=== PATIENT | female | born 2000 | race Caucasian/White ===

== ENCOUNTER 2022-11-30 09:16 | Emergency (ER) | payer OTHER, SELFPAY ==
[2022-11-30 09:18] VITALS: BP 111/81; PULSE 93; RESP 18; TEMP 36.5; O2SAT 98
--- NOTE | 2022-11-30 09:46 | ED.DENTAL ---
HPI - Dental/Oral General Chief complaint: Dental/Oral Stated complaint: swollen lip, mouth pain Time Seen by Provider: 11/30/22 09:25 Source: patient Mode of arrival: ambulatory Limitations: no limitations History of Present Illness HPI Narrative: Patient is a 22 y/o female who presents to the ED with c/o mouth pain and upper lip swelling. Patient reports she developed pain along her upper teeth/gums, teeth numbers 7 and 8 yesterday. She then woke up this morning with mild swelling of her upper lip, which prompted her presentation. She denies any difficulty breathing or swallowing, rash, allergen exposure, swelling of throat or tongue, sore throat, injury, fevers, nausea, vomiting. Denies feeling any bump or abscessed region. Denies any drainage. Has not tried anything for her symptoms. Related Data Allergies Allergy/AdvReac Type Severity Reaction Status Date / Time No Known Allergies Allergy Unverified 10/22/18 10:30 Review of Systems Review of Systems: CONSTITUTIONAL: Denies fever, chills, or sweats. ENT: See HPI. CARDIOVASCULAR: Denies chest pain. RESPIRATORY: Denies cough or dyspnea. GASTROINTESTINAL: Denies nausea, vomiting. All systems reviewed & are unremarkable except as noted in HPI and below PMFSH Past Medical History Medical History Anxiety Depression Surgical History Surgical History No pertinent past surgical history Social History Social History Smoking status: Never smoker Exam Narrative: GENERAL: Well appearing, thin, non-toxic, in no acute distress. HEAD: Normocephalic, atraumatic. ENT: Scattered dental caries. Plaque buildup along several teeth. No significant dental decay. Focal tenderness along upper gumline, above teeth numbers 7 and 8, no palpable abscess or fluctuance. No ulcers. Very mild swelling of upper right lip. No swelling of tongue or throat. Airway patent. No stridor. No hypertrophy or exudate. Uvula midline. Patient tolerating secretions. NECK: Supple. No adenopathy, no masses. RESPIRATORY: Airway patent, respirations nonlabored. Clear to auscultation bilaterally, no rales, rhonchi, wheezing. CARDIOVASCULAR: Regular rate and rhythm without murmurs, rubs, or gallops. Radial pulses 2+ and equal bilaterally. MUSCULOSKELETAL: Moves all extremities. Strength/ROM intact without gross deformities. SKIN: Warm, dry, normal color. No rashes. No urticaria. NEURO: A&O X3. Speech clear. Cranial nerves II-XII grossly intact. Steady gait. No ataxic movements. PSYCHIATRIC: Appropriate mood and affect. Normal interaction. HENMT: Teeth image: 1. tenderness along gumline Course Vital Signs Vital signs: Vital Signs Temperature 97.7 F 11/30/22 09:18 Pulse Rate 93 11/30/22 09:18 Respiratory Rate 18 11/30/22 09:18 Blood Pressure 111/81 11/30/22 09:18 Pulse Oximetry 98 11/30/22 09:18 Oxygen Delivery Room Air 11/30/22 09:18 Temperature 97.7 F 11/30/22 09:18 Pulse Rate 93 11/30/22 09:18 Respiratory Rate 18 11/30/22 09:18 Blood Pressure 111/81 11/30/22 09:18 Pulse Oximetry 98 11/30/22 09:18 Oxygen Delivery Room Air 11/30/22 09:18 MDM - Dental/Oral MDM Narrative Medical decision making narrative: Patient's pain is consistent with gingivitis, dental infection. Focal tenderness along upper gumline. There are no focal signs of space-occupying abscess. No palpable fluctuance or abscesses. Low suspicion for allergic reaction/anaphylaxis/angioedema. Swelling mild and in the same location as the tenderness along gumline underneath. No known allergen exposure. No other signs of allergic reaction. No tongue or throat swelling. Patient is controlling secretions well without signs of airway compromise. Patient is felt reasonable for outpatient follow-up with arpan
[2022-11-30] MEDS: AMOXICILLIN/CLAVULANATE K 875-125 MG TAB 1 TABLET PO (10:22)
== END 2022-11-30 10:32 | disposition home or self-care (01) ==
PROVIDERS: Emergency Provider Physician Assistant; PCP Nurse Practitioner Family
DX: K05.10 Chronic gingivitis, plaque induced (principal); R22.0 Localized swelling, mass and lump, head
CPT/HCPCS: 99283; A9270

== ENCOUNTER 2023-09-14 09:17 | Outpatient (CLI) | payer OTHER, SELFPAY ==
[2023-09-14 10:03] LABS: Basophils Absolute Auto 0.1 K/mm3 (0.0-0.1); Eosinophils Absolute Auto 0.1 K/mm3 (0-0.3); Eosinophils Percent Auto 2.6 % (0-4.4); Hematocrit 38.2 % (37.0-47.0); Hemoglobin 12.1 g/dL (12.0-15.0); Immature Granulocyte Absolute 0.01 K/mm3 (0.00-0.031); Immature Granulocyte Percent A 0.2 % (0-0.5); Lymphocytes Percent Auto 47.8 % (18.3-44.2); Mean Corpuscular HGB Conc 31.7 g/dl (32-36); Mean Corpuscular Hemoglobin 28.1 pg (26-34); Mean Corpuscular Volume 88.8 fl (80-100); Mean Platelet Volume 9.9 fl (7.4-10.4); Monocytes Absolute Auto 0.5 K/mm3 (0.1-0.6); Neutrophils Percent Auto 39.4 % (45.5-73.1); Platelet Count Result 281 k/mm3 (150-375); Red Cell Distribution Width 12.9 % (11.5-14.5)
[2023-09-14 10:57] LABS: Alanine Aminotransferase 14 U/L (6-35); Albumin Level 4.5 g/dL (3.5-5.1); Alkaline Phosphatase 56 U/L (38-126); Anion Gap 8 mmol/L (8-16); Aspartate Amino Transferase 30 U/L (14-36); Bilirubin,Total 0.6 mg/dL (0.2-1.3); Blood Urea Nitrogen 13 mg/dL (7-17); Calcium 9.5 mg/dL (8.4-10.2); Carbon Dioxide 28 mmol/L (22-30); Chloride 107 mmol/L (98-107); Cholesterol 195 mg/dL (0-200); Estimated Glomerular Filt Rate > 60; Glucose 87 mg/dL (65-110); HDL Direct 56 mg/dL; Potassium 4.8 mmol/L (3.4-5.0); Sodium 143 mmol/L (137-145); Triglycerides 71 mg/dL (<150)
[2023-09-14 11:15] LABS: LDL Cholesterol Direct 114 mg/dL
[2023-09-14 11:55] LABS: Hemoglobin A1C 5.1 % (<5.7)
== END 2023-09-14 09:18 | disposition home or self-care (01) ==
PROVIDERS: PCP Nurse Practitioner Family
DX: Z79.899 Other long term (current) drug therapy (principal)
CPT/HCPCS: 36415; 80053; 80061; 83036; 84443; 85025

== ENCOUNTER 2024-07-17 09:58 | Outpatient (CLI) | payer OTHER, SELFPAY ==
[2024-07-17 10:39] LABS: Basophils Absolute Auto 0.1 K/mm3 (0.0-0.1); Basophils Percent Auto 1.1 % (0.2-1.2); Eosinophils Absolute Auto 0.1 K/mm3 (0-0.3); Eosinophils Percent Auto 1.6 % (0-4.4); Hematocrit 36.4 % (37.0-47.0); Hemoglobin 11.7 g/dL (12.0-15.0); Immature Granulocyte Absolute 0.01 K/mm3 (0.00-0.031); Immature Granulocyte Percent A 0.2 % (0-0.5); Lymphocytes Absolute Auto 2.69 K/mm3 (0.9-3.2); Lymphocytes Percent Auto 48.6 % (18.3-44.2); Mean Corpuscular HGB Conc 32.1 g/dl (32-36); Mean Corpuscular Hemoglobin 28.5 pg (26-34); Mean Corpuscular Volume 88.6 fl (80-100); Mean Platelet Volume 9.6 fl (7.4-10.4); Monocytes Absolute Auto 0.5 K/mm3 (0.1-0.6); Monocytes Percent Auto 8.9 % (2.6-8.5); Neutrophils Absolute Auto 2.2 K/mm3 (1.3-6.7); Neutrophils Percent Auto 39.6 % (45.5-73.1); Platelet Count Result 337 k/mm3 (150-375); Red Blood Count 4.11 M/mm3 (4.2-5.4); Red Cell Distribution Width 12.2 % (11.5-14.5); White Blood Count 5.5 K/mm3 (4.5-10.0)
[2024-07-17 10:49] LABS: Alanine Aminotransferase 12 U/L (6-35); Albumin Level 4.5 g/dL (3.5-5.1); Alkaline Phosphatase 59 U/L (38-126); Anion Gap 7 mmol/L (4-12); Aspartate Amino Transferase 31 U/L (14-36); Bilirubin,Total 0.4 mg/dL (0.2-1.3); Blood Urea Nitrogen 7 mg/dL (7-17); Calcium 8.7 mg/dL (8.4-10.2); Carbon Dioxide 26 mmol/L (22-30); Chloride 105 mmol/L (98-107); Cholesterol 206 mg/dL (0-200); Estimated Glomerular Filt Rate > 60; Glucose 90 mg/dL (65-110); HDL Direct 54 mg/dL; Sodium 138 mmol/L (137-145); Triglycerides 64 mg/dL (<150)
[2024-07-17 10:53] LABS: Hemoglobin A1C 5.1 % (<5.7)
[2024-07-17 11:00] LABS: LDL Cholesterol Direct 115 mg/dL
== END 2024-07-17 09:59 | disposition home or self-care (01) ==
PROVIDERS: PCP Nurse Practitioner Family
DX: Z79.899 Other long term (current) drug therapy (principal)
CPT/HCPCS: 36415; 80053; 80061; 83036; 85025

== ENCOUNTER 2025-03-18 13:46 | Outpatient (CLI) | payer OTHER, SELFPAY ==
[2025-03-18 14:06] LABS: Hematocrit 37.3 % (37.0-47.0); Hemoglobin 12.2 g/dL (12.0-15.0); Immature Granulocyte Percent A 0.2 % (0-0.5); Lymphocytes Absolute Auto 2.09 K/mm3 (0.9-3.2); Mean Corpuscular HGB Conc 32.7 g/dl (32-36); Mean Corpuscular Hemoglobin 28.6 pg (26-34); Mean Corpuscular Volume 87.4 fl (80-100); Nucleated Red Blood Cells Absolute Auto 0.000 K/mm3 (0.0-0.012); Nucleated Red Blood Cells Perc 0.0 % (0.0-0.2); Platelet Count Result 304 k/mm3 (150-375); Red Blood Count 4.27 M/mm3 (4.2-5.4); White Blood Count 6.1 K/mm3 (4.5-10.0)
[2025-03-18 14:16] LABS: Hemoglobin A1C 5.0 % (<5.7)
[2025-03-18 14:27] LABS: Alanine Aminotransferase 14 U/L (6-35); Albumin Level 4.5 g/dL (3.5-5.1); Alkaline Phosphatase 52 U/L (38-126); Anion Gap 8 mmol/L (4-12); Aspartate Amino Transferase 33 U/L (14-36); Bilirubin,Total 0.3 mg/dL (0.2-1.3); Blood Urea Nitrogen 10 mg/dL (7-17); Calcium 8.9 mg/dL (8.4-10.2); Carbon Dioxide 27 mmol/L (22-30); Chloride 104 mmol/L (98-107); Cholesterol 193 mg/dL (0-200); Estimated Glomerular Filt Rate > 60; Glucose 76 mg/dL (65-110); HDL Direct 46 mg/dL; Potassium 4.2 mmol/L (3.4-5.0); Sodium 139 mmol/L (137-145); Total Protein 7.8 g/dL (6.3-8.2); Triglycerides 155 mg/dL (<150)
[2025-03-18 14:57] LABS: Thyroid Stimulating Hormone Reflex 2.980 uIU/mL (0.465-4.68)
== END 2025-03-18 13:47 | disposition home or self-care (01) ==
LOC: ANHLAB 13:49
PROVIDERS: PCP Nurse Practitioner Family; Visit Provider Nurse Practitioner Family
DX: Z51.81 Encounter for therapeutic drug level monitoring (principal); Z79.899 Other long term (current) drug therapy
CPT/HCPCS: 36415; 80053; 80061; 83036; 84443; 85025